=== PATIENT | male | born 1950 | race Hispanic/Latino ===

== ENCOUNTER → 2018-09-12 | Outpatient (CLI) | payer MEDICARE | END | disposition home or self-care (01) | LOC: RAH 11:14 | PROVIDERS: ATTEND Family Medicine | DX: J90 Pleural effusion, not elsewhere classified (principal); R91.8 Other nonspecific abnormal finding of lung field; M47.895 Other spondylosis, thoracolumbar region | CPT/HCPCS: 71046 ==